=== PATIENT | male | born 1945 | race Caucasian/White ===

== ENCOUNTER 2022-07-16 21:02 | Inpatient (IN) ==
[2022-07-17] MEDS ORDERED: Iopamidol - 370 500 ML MLS IVP ONE (05:23)
[2022-07-17 06:14] LABS: Basophils % 0.1 %; Hematocrit 41.9 % (37.5-50.1); Hemoglobin 14.2 g/dL (12.9-16.9); Immature Granulocytes % 0.5 % (0-4); Lymphocytes # 0.5 K/mcL (0.6-4.6); Lymphocytes % 3.9 %; Mean Corpuscular HGB Conc 33.9 g/dL (31.6-35.5); Mean Corpuscular Hemoglobin 31.2 pg (28.0-33.3); Mean Corpuscular Volume 92.1 fL (83.0-100.0); Mean Platelet Volume 9.4 fL (9.4-12.4); Monocytes # 0.8 K/mcL (0.0-1.3); Monocytes % 5.4 %; Neutrophils # 12.6 K/mcL (1.6-8.9); Platelet Count 251 K/mcL (140-400); Red Blood Count 4.55 M/mcL (4.19-5.50); Segmented Neutrophils % 90.1 %
[2022-07-17 06:21] LABS: INR 2.5; Prothrombin Time 28.1 Seconds (9.4-12.1)
[2022-07-17 06:29] LABS: Bacteria,Urine Few per hpf (None-Few); Bilirubin,Urine Negative (Negative); Blood,Urine Negative (Negative); Calcium Oxalate Crystals,Urine Present per hpf; Clarity,Urine Clear (Clear); Color,Urine Light-Yellow (Yellow); Glucose,Urine (UA) >=1000 mg/dL (Normal); Hyaline Casts,Urine Few per lpf (None Seen); Ketones,Urine 100 mg/dL (Negative); Leukocyte Esterase,Urine Negative (Negative); Mucus,Urine Few per lpf (None-Few); Nitrite,Urine Negative (Negative); Protein,Urine Trace mg/dL (Neg-Trace); Specific Gravity,Urine 1.023 (1.010-1.025); Squamous Epithelial Cell,Urine Few per hpf (None-Few); Urobilinogen,Urine Normal (Normal)
[2022-07-17 06:34] LABS: Calcium 8.9 mg/dL (8.6-10.3); Potassium 4.8 mEq/L (3.5-5.1)
[2022-07-17] MEDS ORDERED: Tdap (Boostrix) Vaccine 0.5 ML SYRINGE IM ONE (06:37)
[2022-07-17] MEDS ORDERED: Aspirin Enteric Coated 325 MG Tablet PO ONE (09:43)
[2022-07-17] MEDS ORDERED: *HR* Labetalol 20 MG/4 ML SYRINGE IVP PRN (09:46)
[2022-07-17] MEDS ORDERED: Dextrose Gel 15 GM/37.5 ML TUBE PO PRN ×2 (09:49)
[2022-07-17] MEDS ORDERED: D5% in Water 1,000 ML IVC PRN (09:49)
[2022-07-17] MEDS ORDERED: *HR* Dextrose 50 % in Water (Syg) 50 ML SYRINGE IVP PRN (09:49)
[2022-07-17] MEDS: Insulin LISPRO 300 UNITS/3 ML VIAL SUBQ SCH ×2 (13:50→18:12)
[2022-07-17] MEDS: lisinopriL 20 MG TABLET PO SCH (13:54)
[2022-07-17] MEDS: Metoprolol XL (24 HR) Succ 25 MG TAB.ER.24H PO SCH (13:54)
[2022-07-17] MEDS ORDERED: Insulin LISPRO 300 UNITS/3 ML VIAL SUBQ SCH (21:00)
[2022-07-18 01:46] LABS: Basophils # 0.1 K/mcL (0.0-0.2); Basophils % 0.4 %; Eosinophils # 0.3 K/mcL (0.0-0.6); Hematocrit 34.5 % (37.5-50.1); Immature Granulocytes % 0.2 % (0-4); Lymphocytes # 2.3 K/mcL (0.6-4.6); Lymphocytes % 18.5 %; Mean Corpuscular HGB Conc 33.6 g/dL (31.6-35.5); Mean Corpuscular Hemoglobin 30.7 pg (28.0-33.3); Mean Corpuscular Volume 91.3 fL (83.0-100.0); Mean Platelet Volume 9.4 fL (9.4-12.4); Monocytes # 1.4 K/mcL (0.0-1.3); Monocytes % 11.5 %; Neutrophils # 8.4 K/mcL (1.6-8.9); Platelet Count 231 K/mcL (140-400); Red Blood Count 3.78 M/mcL (4.19-5.50); Segmented Neutrophils % 67.4 %; White Blood Count 12.5 K/mcL (4.3-11.1)
[2022-07-18 01:47] LABS: Hemoglobin 11.6 g/dL (12.9-16.9)
[2022-07-18 01:54] LABS: INR 2.1; Prothrombin Time 23.6 Seconds (9.4-12.1)
[2022-07-18 02:00] LABS: Chol/HDL Ratio 3.9 (0-4.9)
[2022-07-18 02:04] LABS: Calcium 8.4 mg/dL (8.6-10.3); Potassium 3.5 mEq/L (3.5-5.1)
[2022-07-18 02:38] LABS: Estimated Average Glucose 157 mg/dl; Hemoglobin A1C 7.1 %
[2022-07-18] MEDS: Insulin LISPRO 300 UNITS/3 ML VIAL SUBQ SCH ×2 (08:54→11:31)
[2022-07-18] MEDS: lisinopriL 20 MG TABLET PO SCH (08:54)
[2022-07-18] MEDS: Metoprolol XL (24 HR) Succ 25 MG TAB.ER.24H PO SCH (08:54)
[2022-07-18] MEDS ORDERED: Aspirin Enteric Coated 81 MG Tablet PO SCH (09:00)
[2022-07-18] MEDS ORDERED: *HR* HYDROcodone/Acet 5/325 mg TABLET PO ONE (13:55)
[2022-07-18 14:36] VITALS: BP 101/63; PULSE 95; TEMP 97.6; O2SAT 96
== END 2022-07-18 15:21 | disposition home health service (06) | DRG 69 ==
LOC: 3BNU 21:02 → EMEROOARM 21:02 → SUATTDRO 07-17 12:20 → 3BNU 07-17 13:34
PROVIDERS: ADMIT Internal Medicine; ATTEND Internal Medicine